=== PATIENT | male | born 1990 | race African-American/Black ===

== ENCOUNTER 2022-07-24 21:49 | Emergency (ER) | payer OTHER ==
[2022-07-24 22:09] VITALS: BP 141/69; PULSE 79
[2022-07-24] MEDS: Take Home: Acetaminophen/oxyCODONE 325-5 MG, 5 Tab Pack PO ONE (22:15)
== END 2022-07-24 22:25 | disposition home or self-care (01) ==
LOC: VM.ED 21:49
DX: S86.002A Unspecified injury of left Achilles tendon, initial encounter (principal); X50.9XXA Other and unspecified overexertion or strenuous movements or postures, initial encounter; Y93.67 Activity, basketball
CPT/HCPCS: 29515; 99283; A9270-GY